=== PATIENT | female | born 1940 | race Caucasian/White ===

== ENCOUNTER 2022-04-15 08:00 | Outpatient (CLI) | payer BC ==
[~2022-04-15] VITALS: Ht 149.9 cm; Wt 44.0 kg
[~2022-04-15 08:00] MED LIST: ALPHAGANP OP; ASPI-1155 PO; DORZ10DR13 OP; LANS30CA53 PO; LUMEYE OP; SIMV40TA2 PO
[2022-04-20] MEDS ORDERED: CEFAZOLIN SOD 1 GM/ ISO 50 ML PREMIX IV ONE (07:00)
== END 2022-04-15 14:00 | disposition home or self-care (01) ==
LOC: SLB 08:00 → SDS 04-20 06:05 → SMU 04-20 06:05 → EDSTATUS 04-20 09:00
PROVIDERS: ATTEND Colon & Rectal Surgery
DX: C50.912 Malignant neoplasm of unspecified site of left female breast (principal); C44.309 Unspecified malignant neoplasm of skin of other parts of face; Z88.5 Allergy status to narcotic agent; Z88.8 Allergy status to other drugs, medicaments and biological substances; Z20.822 Contact with and (suspected) exposure to COVID-19; Z53.8 Procedure and treatment not carried out for other reasons
CPT/HCPCS: 87081; 36415; U0003; J0690

== ENCOUNTER 2022-05-18 06:05 | Day surgery (SDC) | payer BC ==
[~2022-05-18] VITALS: Ht 175.3 cm; Wt 43.1 kg
[~2022-05-18 06:05] MED LIST changes: +SIMV-345 PO; -SIMV40TA2 PO
[2022-05-18] MEDS ORDERED: VANCOMYCIN HCL 1 GM/NS PREMIX 250 ML IV ONE (07:45)
[2022-05-18] MEDS ORDERED: DEXAMETHASONE SOD PHOSPHATE 4 MG/ML VIAL ONE (09:54)
[2022-05-18] MEDS ORDERED: MUPIROCIN 2% TOPICAL OINTMENT 22 GM ONE (09:54)
[2022-05-18] MEDS ORDERED: LR 1,000 ML IV.SOLN IV ONE (09:54)
[2022-05-18] MEDS ORDERED: ePHEDrine sulfate 50 MG/ML VIAL ONE (09:54)
[2022-05-18] MEDS ORDERED: NS IRRIG SOLN 1000 ML IR ONE (09:54)
[2022-05-18] MEDS ORDERED: PROPOFOL 200MG/ 20ML VIAL (DIPRIVAN) IV ONE (09:54)
[2022-05-18] MEDS ORDERED: SEVOFLURANE 15 MIN GAS INH ONE (09:54)
[2022-05-18] MEDS ORDERED: METOCLOPRAMIDE HCL 10 MG/2 ML VIAL ONE (09:54)
[2022-05-18] MEDS ORDERED: ONDANSETRON HCL 4 MG/2 ML VIAL ONE (09:54)
[2022-05-18] MEDS ORDERED: NS 250 ML IV.SOLN IV ONE (09:54)
[2022-05-18] MEDS ORDERED: ISOSULFAN BLUE 5 ML VIAL (LYMPHAZURIN) ONE (09:54)
[2022-05-18] MEDS ORDERED: BUPIVACAINE /EPINEPHRINE/PF 0.5% 30 ML VIAL INJ ONE (09:54)
[2022-05-18] MEDS ORDERED: PHENYLEPHRINE HCL 10 MG/ML VIAL (NEOSYNEPHRINE) ONE (09:54)
[2022-05-18] MEDS ORDERED: VANCOMYCIN HCL 1000 MG/VIAL IV ONE (09:54)
[2022-05-18] MEDS ORDERED: fentaNYL CITRATE/PF 100 MCG/2 ML AMP ONE (09:54)
[2022-05-18] MEDS ORDERED: MEPERIDINE HCL/PF 25 MG/ML DISP.SYRIN IVP PRN (11:15)
[2022-05-18] MEDS ORDERED: HYDROmorphone 1 MG/ML INJ. CARTRIDGE IVP PRN ×2 (11:15→11:45)
[2022-05-18] MEDS ORDERED: ONDANSETRON HCL 4 MG/2 ML VIAL IVP PRN ×2 (11:15→11:45)
[2022-05-18] MEDS ORDERED: KETOROLAC TROMETHAMINE 30 MG VIAL IVP PRN (11:15)
[2022-05-18] MEDS ORDERED: LR 1,000 ML IV SCH (11:15)
[2022-05-18] MEDS ORDERED: ACETAMINOPHEN I.V. 1000 MG 100 ML IV ONE (11:25)
[2022-05-18] MEDS ORDERED: DOXY100T2 PO (11:45)
[2022-05-18] MEDS ORDERED: MULT-1199 PO (11:45)
[2022-05-18] MEDS ORDERED: HYDROcodone/ACETAMIN 5-325 MG TAB (NORCO/ VICODIN) PO PRN ×2 (11:45)
[2022-05-18] MEDS ORDERED: ALBU2.5V7 INH (11:45)
[2022-05-18] MEDS ORDERED: XALEYE OP (11:45)
[2022-05-18] MEDS ORDERED: VITD2000 PO (11:45)
[2022-05-18] MEDS ORDERED: ALPR0.5T8 PO (11:45)
[2022-05-18] MEDS ORDERED: FERR-31 PO (11:45)
[2022-05-18] MEDS ORDERED: METF-379 PO (11:45)
[2022-05-18] MEDS ORDERED: ACETAMINOPHEN 325 MG TABLET PO PRN (11:45)
[2022-05-18] MEDS ORDERED: MUPI15CR12 TP (11:45)
[2022-05-18] MEDS ORDERED: METO25TA3 PO (11:45)
[2022-05-18] MEDS ORDERED: LIP40 PO (11:45)
--- NOTE | 2022-05-18 13:30 | NUR ---
admitted the patient from the recovery operator in 115 . aox4 admitting diagnosis of left breast mastectomy done by md ferrell . will continue to monitor
[2022-05-18 15:53] VITALS: BP_SYST 130
[2022-05-18] MEDS: CEFAZOLIN 1 GM IVPB PREMIX 50 ML IV SCH ×2 (16:52→22:27)
[2022-05-18] MEDS: D5/0.45 NS 1,000 ML IV SCH ×2 (16:52→22:15)
[2022-05-18 17:20] VITALS: BP_SYST 142
--- NOTE | 2022-05-18 18:21 | NUR ---
will endorse to comic writer rn for continuity oif care . still positive on covid 19
[2022-05-18 20:00] VITALS: BP_SYST 145
[2022-05-18] MEDS: FAMOTIDINE PF 20 MG/2 ML VIAL IVP SCH (22:27)
[2022-05-19 00:17] VITALS: BP_SYST 135
--- NOTE | 2022-05-19 06:37 | NUR ---
Closing notes pt is sleeping comfortably in bed, no s/s of any distress, JP1 drain 30mL JP2 drain 50mL, Strict I &O
[2022-05-19] MEDS: FAMOTIDINE PF 20 MG/2 ML VIAL IVP SCH (08:37)
[2022-05-19 11:40] VITALS: BP_SYST 142
[2022-05-19 12:16] VITALS: BP_SYST 135
== END 2022-05-19 14:30 | disposition home or self-care (01) ==
LOC: SDS 06:05 → SMU 06:05 → SDS 05-19 14:30
PROVIDERS: ATTEND Colon & Rectal Surgery
DX: D05.12 Intraductal carcinoma in situ of left breast (principal); C44.390 Other specified malignant neoplasm of skin of unspecified parts of face; I10 Essential (primary) hypertension; E11.9 Type 2 diabetes mellitus without complications; J45.909 Unspecified asthma, uncomplicated; E78.5 Hyperlipidemia, unspecified; Z88.5 Allergy status to narcotic agent; Z88.8 Allergy status to other drugs, medicaments and biological substances; Z79.899 Other long term (current) drug therapy; Z20.822 Contact with and (suspected) exposure to COVID-19
CPT/HCPCS: 87081; 38525; 11643; 12052; 19301; 38792; 36415; 88305; 88307; 88333; 88342; 87426; A9541; J3490 ×3; J0690; J1100; J2765; J2405 ×2; J2370; J2704; J3370 ×2; J3010; Q9968; J7120; J7050; J0131; 78195

== ENCOUNTER 2022-05-21 12:08 | Inpatient (IN) | payer BC ==
[~2022-05-21] VITALS: Ht 152.4 cm; Wt 45.0 kg
[~2022-05-21 12:08] MED LIST changes: +ALBU2.5V7 INH; +ALPR0.5T8 PO; +DOXY100T2 PO; +FERR-31 PO; +LIP40 PO; +METF-379 PO; +METO25TA3 PO; +MULT-1199 PO; +MUPI15CR12 TP; +VITD2000 PO; +XALEYE OP
[2022-05-21 12:10] VITALS: BP_SYST 114
[2022-05-21 16:18] LABS: BILIRUBIN,URINE NEGATIVE (NEGATIVE); BLOOD, URINE NEGATIVE (NEGATIVE); COLOR,URINE YELLOW (YELLOW); GLUCOSE,URINE NEGATIVE (NEGATIVE); KETONES,URINE TRACE (NEGATIVE); LEUKOCYTE ESTERASE ,URINE 2+ (NEGATIVE); NITRITE, URINE NEGATIVE (NEGATIVE); PROTEIN URINE NEGATIVE (NEGATIVE); UROBILINOGEN,URINE 0.2 (0.2-1.0)
[2022-05-21 16:32] LABS: CLARITY/URINE SLIGHTLY HAZY (CLEAR)
[2022-05-21 16:40] LABS: BACTERIA,URINE FEW /HPF (None Seen); RBC,URINE 0-3 /HPF (0-3); WBC,URINE 20-50 /HPF (0-3)
[2022-05-21 16:41] LABS: MUCUS,URINE 3+ /LPF (None Seen)
[2022-05-21 16:43] LABS: BASOPHILS % (AUTO) 0.3 % (0.0-2.0); EOSINOPHILS # (AUTO) 0.2 K/uL (0.0-0.4); EOSINOPHILS % (AUTO) 1.7 % (0.0-4.0); HEMATOCRIT 29.1 % (36-48); HEMOGLOBIN 9.5 g/dL (12.0-16.0); LYMPHOCYTES # (AUTO) 2.8 K/uL (1.0-5.5); LYMPHOCYTES % (AUTO) 19.6 % (20.5-51.5); MEAN CORPUSCULAR HEMOGLOBIN 28 pg (27-31); MEAN CORPUSCULAR HGB CONC 32 % (32-36); MEAN CORPUSCULAR VOLUME 86 fL (79.0-98.0); MONOCYTES # (AUTO) 1.2 K/uL (0.0-1.0); MONOCYTES % (AUTO) 8.2 % (1.7-9.3); NEUTROPHILS % (AUTO) 70.2 % (40.0-70.0); PLATELET COUNT (AUTO) 247 K/uL (130-430); RED BLOOD CELL COUNT(AUTO) 3.37 MIL/uL (4.2-6.2); RED CELL DISTRIBUTION WIDTH 15.7 % (9.0-15.0); WHITE BLOOD COUNT (AUTO) 14.2 K/uL (4.8-10.8)
[2022-05-21 17:14] LABS: ANION GAP 5 (5-15); CALCIUM 8.4 mg/dL (8.4-11.0); CHLORIDE 103 mmol/L (98-107); CREATININE 0.62 mg/dL (0.55-1.30); GLUCOSE 106 mg/dL (70-99); UREA NITROGEN, BLOOD 12 mg/dL (8-21)
[2022-05-21] MEDS ORDERED: NACL 0.9% 1,000 ML IV ONE (17:15)
[2022-05-21] MEDS ORDERED: cefTRIAXone 1 GM IVPB PREMIX 50 ML IV ONE (17:15)
[2022-05-21 17:19] LABS: ALANINE AMINOTRANSFERASE 20 U/L (12-78); ALBUMIN 2.5 g/dL (3.4-4.8); ASPARTATE AMINOTRANSFERASE 17 U/L (10-37); TOTAL BILIRUBIN 0.4 mg/dL (0.0-1.0)
[2022-05-21] MEDS: 0.45% NACL 1,000 ML IV SCH (22:51)
[2022-05-22 02:00] VITALS: BP_SYST 119
[2022-05-22 02:36] VITALS: BP_SYST 112
[2022-05-22] MEDS ORDERED: ONDANSETRON HCL 4 MG/2 ML VIAL IVP PRN (07:00)
[2022-05-22] MEDS ORDERED: cefTRIAXone 1 GM IVPB PREMIX 50 ML IV SCH (07:00)
[2022-05-22 08:00] VITALS: BP_SYST 132
[2022-05-22 09:34] LABS: ALANINE AMINOTRANSFERASE 17 U/L (12-78); ALBUMIN 2.3 g/dL (3.4-4.8); ANION GAP 6 (5-15); ASPARTATE AMINOTRANSFERASE 17 U/L (10-37); CALCIUM 8.4 mg/dL (8.4-11.0); CHLORIDE 104 mmol/L (98-107); CREATININE 0.59 mg/dL (0.55-1.30); GLUCOSE 188 mg/dL (70-99); TOTAL BILIRUBIN 0.4 mg/dL (0.0-1.0); UREA NITROGEN, BLOOD 8 mg/dL (8-21)
[2022-05-22 09:39] LABS: BASOPHILS % (AUTO) 0.4 % (0.0-2.0); EOSINOPHILS # (AUTO) 0.2 K/uL (0.0-0.4); EOSINOPHILS % (AUTO) 1.4 % (0.0-4.0); HEMATOCRIT 28.8 % (36-48); HEMOGLOBIN 9.3 g/dL (12.0-16.0); LYMPHOCYTES # (AUTO) 1.5 K/uL (1.0-5.5); LYMPHOCYTES % (AUTO) 13.2 % (20.5-51.5); MEAN CORPUSCULAR HEMOGLOBIN 28 pg (27-31); MEAN CORPUSCULAR HGB CONC 32 % (32-36); MEAN CORPUSCULAR VOLUME 87 fL (79.0-98.0); MONOCYTES # (AUTO) 0.8 K/uL (0.0-1.0); MONOCYTES % (AUTO) 7.2 % (1.7-9.3); NEUTROPHILS # (AUTO) 8.8 K/uL (1.8-7.7); NEUTROPHILS % (AUTO) 77.8 % (40.0-70.0); PLATELET COUNT (AUTO) 233 K/uL (130-430); RED BLOOD CELL COUNT(AUTO) 3.33 MIL/uL (4.2-6.2); RED CELL DISTRIBUTION WIDTH 15.7 % (9.0-15.0); WHITE BLOOD COUNT (AUTO) 11.3 K/uL (4.8-10.8)
[2022-05-22] MEDS: 0.45% NACL 1,000 ML IV SCH ×2 (10:51→22:25)
[2022-05-22] MEDS: ENOXAPARIN SODIUM 40 MG/0.4 ML SYRINGE SUBCUT SCH (10:52)
[2022-05-22 11:28] VITALS: BP_SYST 122
[2022-05-22 15:13] VITALS: BP_SYST 106
[2022-05-22] MEDS: cefTRIAXone 1 GM IVPB PREMIX 50 ML IV SCH (18:10)
[2022-05-22] MEDS: ASCORBIC ACID 500 MG TABLET PO SCH (22:24)
[2022-05-23 01:02] VITALS: BP_SYST 124
[2022-05-23 08:00] VITALS: BP_SYST 106
[2022-05-23] MEDS: CHOLECALCIFEROL (VITAMIN D3) 5,000 UNIT TABLET PO SCH (08:24)
[2022-05-23] MEDS: ENOXAPARIN SODIUM 40 MG/0.4 ML SYRINGE SUBCUT SCH (08:24)
[2022-05-23] MEDS: ASCORBIC ACID 500 MG TABLET PO SCH ×2 (08:24→20:46)
[2022-05-23 10:22] LABS: BASOPHILS % (AUTO) 0.4 % (0.0-2.0); EOSINOPHILS # (AUTO) 0.2 K/uL (0.0-0.4); EOSINOPHILS % (AUTO) 1.5 % (0.0-4.0); HEMATOCRIT 28.1 % (36-48); HEMOGLOBIN 9.2 g/dL (12.0-16.0); LYMPHOCYTES # (AUTO) 1.7 K/uL (1.0-5.5); LYMPHOCYTES % (AUTO) 15.9 % (20.5-51.5); MEAN CORPUSCULAR HEMOGLOBIN 28 pg (27-31); MEAN CORPUSCULAR HGB CONC 33 % (32-36); MEAN CORPUSCULAR VOLUME 86 fL (79.0-98.0); MONOCYTES # (AUTO) 0.8 K/uL (0.0-1.0); MONOCYTES % (AUTO) 7.2 % (1.7-9.3); PLATELET COUNT (AUTO) 235 K/uL (130-430); RED BLOOD CELL COUNT(AUTO) 3.27 MIL/uL (4.2-6.2); RED CELL DISTRIBUTION WIDTH 15.7 % (9.0-15.0); WHITE BLOOD COUNT (AUTO) 10.7 K/uL (4.8-10.8)
[2022-05-23 10:47] LABS: ALANINE AMINOTRANSFERASE 18 U/L (12-78); ALBUMIN 2.1 g/dL (3.4-4.8); ANION GAP 8 (5-15); ASPARTATE AMINOTRANSFERASE 15 U/L (10-37); CALCIUM 8.5 mg/dL (8.4-11.0); CHLORIDE 105 mmol/L (98-107); CREATININE 0.67 mg/dL (0.55-1.30); GLUCOSE 195 mg/dL (70-99); TOTAL BILIRUBIN 0.2 mg/dL (0.0-1.0); UREA NITROGEN, BLOOD 7 mg/dL (8-21)
[2022-05-23 11:46] VITALS: BP_SYST 114
[2022-05-23] MEDS: NORMAL SALINE 5 ML DISP.SYRIN IVF SCH ×2 (14:41→22:00)
[2022-05-23] MEDS: cefTRIAXone 1 GM IVPB PREMIX 50 ML IV SCH (16:06)
[2022-05-23 16:08] VITALS: BP_SYST 120
[2022-05-24] MEDS: NORMAL SALINE 5 ML DISP.SYRIN IVF SCH ×3 (06:58→21:06)
[2022-05-24 07:20] LABS: ANION GAP 8 (5-15); C-REACTIVE PROTEIN QUANT 5.1 mg/dL (0-0.5); CALCIUM 8.9 mg/dL (8.4-11.0); CHLORIDE 102 mmol/L (98-107); CREATININE 0.63 mg/dL (0.55-1.30); GLUCOSE 108 mg/dL (70-99); UREA NITROGEN, BLOOD 9 mg/dL (8-21)
[2022-05-24 07:36] LABS: BASOPHILS % (AUTO) 0.2 % (0.0-2.0); EOSINOPHILS # (AUTO) 0.3 K/uL (0.0-0.4); EOSINOPHILS % (AUTO) 2.4 % (0.0-4.0); LYMPHOCYTES # (AUTO) 2.7 K/uL (1.0-5.5); LYMPHOCYTES % (AUTO) 24.7 % (20.5-51.5); MEAN CORPUSCULAR HEMOGLOBIN 28 pg (27-31); MEAN CORPUSCULAR HGB CONC 32 % (32-36); MEAN CORPUSCULAR VOLUME 86 fL (79.0-98.0); MONOCYTES # (AUTO) 0.8 K/uL (0.0-1.0); MONOCYTES % (AUTO) 7.5 % (1.7-9.3); NEUTROPHILS # (AUTO) 7.2 K/uL (1.8-7.7); NEUTROPHILS % (AUTO) 65.2 % (40.0-70.0); PLATELET COUNT (AUTO) 291 K/uL (130-430); RED BLOOD CELL COUNT(AUTO) 3.59 MIL/uL (4.2-6.2); RED CELL DISTRIBUTION WIDTH 16.1 % (9.0-15.0)
[2022-05-24 08:05] LABS: ERYTHROCYTE SEDIMENTATION RATE 118 MM/HR (0-20)
[2022-05-24] MEDS: ASCORBIC ACID 500 MG TABLET PO SCH ×2 (09:00→21:06)
[2022-05-24] MEDS: CHOLECALCIFEROL (VITAMIN D3) 5,000 UNIT TABLET PO SCH (09:00)
[2022-05-24] MEDS: ENOXAPARIN SODIUM 40 MG/0.4 ML SYRINGE SUBCUT SCH (09:00)
[2022-05-24 11:37] VITALS: BP_SYST 110
[2022-05-24] MEDS ORDERED: CIPR250T4 PO (14:52)
[2022-05-24] MEDS: cefTRIAXone 1 GM IVPB PREMIX 50 ML IV SCH (17:00)
[2022-05-24 17:11] VITALS: BP_SYST 111
[2022-05-24 20:00] VITALS: BP_SYST 109
[2022-05-25 01:30] VITALS: BP_SYST 115
[2022-05-25] MEDS: NORMAL SALINE 5 ML DISP.SYRIN IVF SCH (06:24)
[2022-05-25 09:50] VITALS: BP_SYST 114
[2022-05-25] MEDS: CHOLECALCIFEROL (VITAMIN D3) 5,000 UNIT TABLET PO SCH (09:54)
[2022-05-25] MEDS: ASCORBIC ACID 500 MG TABLET PO SCH (09:54)
[2022-05-25] MEDS: ENOXAPARIN SODIUM 40 MG/0.4 ML SYRINGE SUBCUT SCH (09:54)
[2022-05-25 11:28] VITALS: BP_SYST 115
[2022-05-25 11:35] VITALS: BP_SYST 115
== END 2022-05-25 13:15 | disposition home health service (06) | DRG 689 ==
LOC: SED 12:08 → SMU 19:37
PROVIDERS: ADMIT Internal Medicine; ATTEND Internal Medicine
DX: N39.0 Urinary tract infection, site not specified (principal); E43 Unspecified severe protein-calorie malnutrition; U07.1 COVID-19; Z68.1 Body mass index [BMI] 19.9 or less, adult; I10 Essential (primary) hypertension; E11.65 Type 2 diabetes mellitus with hyperglycemia; D64.9 Anemia, unspecified; Z88.5 Allergy status to narcotic agent; Z88.8 Allergy status to other drugs, medicaments and biological substances; Z79.899 Other long term (current) drug therapy; Z87.440 Personal history of urinary (tract) infections; Z85.3 Personal history of malignant neoplasm of breast; Z79.82 Long term (current) use of aspirin
CPT/HCPCS: 36415; 80048; 80053; 81000; 83605; 85025; 85379; 85651-TC; 86140; 87040; 87081; 87086; 96361; 96365; 99285; J0696; J1650; J2405